=== PATIENT | male | born 1965 | race Caucasian/White ===

== ENCOUNTER 2019-08-02 06:12 | Inpatient (IN) | payer OTHER ==
[2019-08-01 16:57] VITALS: BMI 32.0
[2019-08-02] VITALS (21 sets, daily range): BP systolic 128–170; BP diastolic 73–89; PULSE 72–101; RESP 13–18; Ht 190.5 cm; Wt 119.3 kg
[~2019-08-02] VITALS: Ht 190.5 cm; Wt 119.3 kg
[~2019-08-02 06:12] MED LIST: AMLO5TAB4 PO; LOSA100T15 PO; METF500T24 PO; NATE120T PO
[2019-08-02] MEDS ORDERED: LACTATED RINGER'S 1,000 ML (ENTER RATE) IV ONE (07:30)
[2019-08-02] MEDS ORDERED: CEFAZOLIN 2 GM/50 ML (PMX) 50 ML IVPB ONE (07:30)
[2019-08-02] MEDS ORDERED: THROMBIN 5000 UNIT (RECOTHROM) VIAL ONE (07:50)
[2019-08-02] MEDS ORDERED: BUPIVACAINE 0.5%/EPI (SDV) 30 ML INJ ONE (07:50)
[2019-08-02] MEDS ORDERED: POLYMYXIN/BACITRACIN 1L IRRIG ONE (07:50)
[2019-08-02] MEDS ORDERED: GELATIN SIZE 100 SPONGE ONE (07:50)
[2019-08-02] MEDS ORDERED: MIDAZOLAM 1 MG/ML 2 ML INJ ONE (08:18)
[2019-08-02] MEDS ORDERED: SUCCINYLCHOLINE CHLORIDE 100 MG/5 ML SYG IV ONE (08:18)
[2019-08-02] MEDS ORDERED: HYDROmorphONE 2 MG/ML SYG ONE ×2 (08:18→09:31)
[2019-08-02] MEDS ORDERED: PROPOFOL 20 ML ONE (08:18)
[2019-08-02] MEDS ORDERED: LIDOCAINE 2% (SDV) 5 ML INJ ONE (08:18)
[2019-08-02] MEDS ORDERED: DEXAMETHASONE 4 MG/ML 5 ML INJ ONE (08:42)
[2019-08-02] MEDS ORDERED: ROCURONIUM 50 MG INJ ONE (10:20)
[2019-08-02] MEDS ORDERED: CEFAZOLIN 1 GM INJ ONE ×2 (10:20→14:44)
[2019-08-02] MEDS ORDERED: ONDANSETRON 4 MG INJ ONE (12:11)
[2019-08-02] MEDS ORDERED: ACETAMINOPHEN 325 MG TAB PO PRN (15:00)
[2019-08-02] MEDS ORDERED: PROCHLORPERAZINE 10 MG TAB PO PRN (15:00)
[2019-08-02] MEDS ORDERED: NALOXONE (0.4 MG/ML) INJ IV PRN (15:00)
[2019-08-02] MEDS ORDERED: AL HYDROX/MG HYDROX/SIMETH 30 ML CUP PO PRN (15:00)
[2019-08-02] MEDS ORDERED: NACL 0.9% 3 ML SYG IV SCH (15:00)
[2019-08-02] MEDS ORDERED: HYDROmorphONE 0.2 MG/ML PCA IV SCH (15:00)
[2019-08-02] MEDS ORDERED: LIDOCAINE 5% PATCH TD PRN (15:00)
[2019-08-02] MEDS ORDERED: HYDROCODONE/APAP (5/325) TAB PO PRN ×2 (15:00)
[2019-08-02] MEDS ORDERED: SUGAMMADEX SODIUM 200 MG/2 ML VIAL IV ONE (15:09)
[2019-08-02] MEDS ORDERED: GLUCOSE GEL 15 GRAM TUBE PO PRN ×2 (17:30)
[2019-08-02] MEDS ORDERED: GLUCOSE GEL 15 GRAM TUBE BUCCAL PRN (17:30)
[2019-08-02] MEDS ORDERED: GLUCAGON 1 MG INJ IM PRN (17:30)
[2019-08-02] MEDS ORDERED: DEXTROSE 50% 50 ML SYRINGE IV PRN ×2 (17:30)
[2019-08-02] MEDS: metFORMIN 500 MG TAB PO SCH (18:00)
[2019-08-02] MEDS ORDERED: DEXAMETHASONE 10 MG/ML 1 ML INJ IV STA (18:09)
[2019-08-02] MEDS: CEFAZOLIN 1 GM/50 ML (PMX) 50 ML IVPB SCH ×2 (18:19→23:36)
[2019-08-02] MEDS: SOD CHLORIDE 0.9% 1,000 ML IV SCH ×2 (18:24→21:57)
[2019-08-02] MEDS: AMLODIPINE 5 MG TAB PO SCH (18:30)
[2019-08-02] MEDS: INSULIN ASPART [NOVOLOG] 3 ML PEN SC SCH (18:35)
[2019-08-02] MEDS: ONDANSETRON 4 MG INJ IV PRN (19:00)
[2019-08-02] MEDS ORDERED: METOCLOPRAMIDE 10 MG INJ IV STA (20:04)
[2019-08-02] MEDS: ACETAMINOPHEN 1000MG/100ML IV 100 ML IVPB SCH (21:52)
[2019-08-02] MEDS: LOSARTAN 50 MG TAB PO SCH (21:53)
[2019-08-03] VITALS: BP 164/89; PULSE 100; RESP 20
[2019-08-03] MEDS: SOD CHLORIDE 0.9% 1,000 ML IV SCH ×2 (02:44→10:22)
[2019-08-03] MEDS: ONDANSETRON 4 MG INJ IV PRN (04:57)
[2019-08-03 05:00] VITALS: BP 165/84; PULSE 89; RESP 18
[2019-08-03] MEDS: CEFAZOLIN 1 GM/50 ML (PMX) 50 ML IVPB SCH ×2 (05:17→12:13)
[2019-08-03] MEDS: ACETAMINOPHEN 1000MG/100ML IV 100 ML IVPB SCH (05:18)
[2019-08-03] MEDS: metFORMIN 500 MG TAB PO SCH ×2 (07:30→17:30)
[2019-08-03] MEDS: INSULIN ASPART [NOVOLOG] 3 ML PEN SC SCH ×3 (08:21→17:30)
[2019-08-03 08:45] VITALS: BP 160/88; PULSE 92; RESP 18
[2019-08-03] MEDS: DOCUSATE SODIUM 100 MG CAP PO SCH ×2 (10:25→20:42)
[2019-08-03] MEDS ORDERED: DEXAMETHASONE 10 MG/ML 1 ML INJ IV ONE (10:30)
[2019-08-03] MEDS: AMLODIPINE 5 MG TAB PO SCH (10:47)
[2019-08-03 14:15] VITALS: BP 173/86; PULSE 94; RESP 18
[2019-08-03 15:50] VITALS: BP 157/83
[2019-08-03 20:24] VITALS: BP 168/80; PULSE 95; RESP 20
[2019-08-03] MEDS: LOSARTAN 50 MG TAB PO SCH (20:43)
[2019-08-04 02:00] VITALS: BP 156/79; PULSE 90; RESP 18
[2019-08-04 07:45] VITALS: BP 168/93; PULSE 85; RESP 18
[2019-08-04] MEDS: DOCUSATE SODIUM 100 MG CAP PO SCH (08:06)
[2019-08-04] MEDS: metFORMIN 500 MG TAB PO SCH (08:07)
[2019-08-04] MEDS: AMLODIPINE 5 MG TAB PO SCH (08:07)
[2019-08-04] MEDS: INSULIN ASPART [NOVOLOG] 3 ML PEN SC SCH ×2 (08:09→11:49)
[2019-08-04] MEDS ORDERED: DEXAMETHASONE 10 MG/ML 1 ML INJ IV ONE (11:00)
== END 2019-08-04 14:10 | disposition home or self-care (01) | DRG 473 ==
LOC: REC 06:12 → MS1 21:10
PROVIDERS: ADMIT Orthopaedic Surgery; ATTEND Orthopaedic Surgery
PROC: 00NW0ZZ Release Cervical Spinal Cord, Open Approach (ICD-10-PCS; 2019-08-02)
PROC: 01N10ZZ Release Cervical Nerve, Open Approach (ICD-10-PCS; 2019-08-02)
PROC: 0RT30ZZ Resection of Cervical Vertebral Disc, Open Approach (ICD-10-PCS; 2019-08-02)
PROC: 4A11X4G Monitoring of Peripheral Nervous Electrical Activity, Intraoperative, External Approach (ICD-10-PCS; 2019-08-02)
PROC: 0RG20K0 Fusion of 2 or more Cervical Vertebral Joints with Nonautologous Tissue Substitute, Anterior Approach, Anterior Column, Open Approach (ICD-10-PCS; principal; 2019-08-02 08:00)
DX: M50.121 Cervical disc disorder at C4-C5 level with radiculopathy (principal); M48.02 Spinal stenosis, cervical region; E11.9 Type 2 diabetes mellitus without complications; I10 Essential (primary) hypertension; E66.9 Obesity, unspecified; Z68.32 Body mass index [BMI] 32.0-32.9, adult; Z79.84 Long term (current) use of oral hypoglycemic drugs
CPT/HCPCS: 72040; 72050; 72141; 80048; 82962; 85014; 85018; 86850; 86900; 86901; 87086; 88304; 97116; 97163; 97530; C1713; J0131; J0690; J1100; J1170; J1815; J2250; J2405; J2765; J7030